=== PATIENT | female | born 1980 | race Two or more races ===

== ENCOUNTER → 2024-10-13 11:05 | Outpatient (REF) | payer OTHER, SELFPAY | LOC: OHS 11:05 | PROVIDERS: ATTENDING PHYSICIAN Nurse Practitioner Family | DX: Z23 Encounter for immunization (principal) | CPT/HCPCS: 36415; 86480 ==

== ENCOUNTER 2024-12-21 13:51 | Emergency (ER) | payer BC, SELFPAY ==
[2024-12-21 13:53] VITALS: BP 136/97
--- NOTE | 2024-12-21 16:24 | EDRN ---
pt's name called twice, @1615 and @1625. no answer. no answer when RN called her phone.
== END 2024-12-21 16:30 ==
LOC: EMR 13:51
DX: Z53.21 Procedure and treatment not carried out due to patient leaving prior to being seen by health care provider (principal)
CPT/HCPCS: 36415; 83880; 84484; 85379; 93005

== ENCOUNTER → 2025-01-05 14:28 | Outpatient (REF) | payer BC, SELFPAY | LOC: RCS 14:28 | PROVIDERS: ATTENDING PHYSICIAN Internal Medicine Cardiovascular Disease | DX: R06.02 Shortness of breath (principal); R07.2 Precordial pain | CPT/HCPCS: 93306 ==

== ENCOUNTER → 2025-02-02 07:34 | Outpatient (REF) | payer BC, SELFPAY ==
[2025-02-02 11:02] LABS: HDL Cholesterol 53 mg/dl; LDL Cholesterol, Calculated 64 mg/dl; Very Low Density Lipoprotein 13 mg/dl (0-30)
== END ==
LOC: RCS 07:34
PROVIDERS: ATTENDING PHYSICIAN Internal Medicine Cardiovascular Disease; FAMILY PHYSICIAN Family Medicine
DX: R06.02 Shortness of breath (principal); R07.2 Precordial pain; E78.00 Pure hypercholesterolemia, unspecified
CPT/HCPCS: 36415; 80061; 93017